=== PATIENT | female | born 1970 | race Caucasian/White ===

== ENCOUNTER → 2017-01-05 | Outpatient (CLI) | payer BC ==
--- NOTE | 2017-01-06 13:11 | MAMMOGRAPHY REPORT ---
BILATERAL DIGITAL SCREENING MAMMOGRAM TOMOSYNTHESIS WITH CAD: 01/05/2017 CLINICAL HISTORY: Routine screening. Patient has no complaints. TECHNIQUE: Breast tomosynthesis in addition to standard 2D mammography was performed. Current study was also evaluated with a Computer Aided Detection (CAD) system. COMPARISON: Comparison is made to exams dated: 12/31/2015 mammogram, 12/09/2014 mammogram, 10/16/2013 mammogram, 09/10/2012 mammogram, 09/08/2011 mammogram, and 11/17/2010 mammogram - [facility]. BREAST COMPOSITION: The tissue of both breasts is heterogeneously dense, which may obscure small ma sses. FINDINGS: No suspicious masses, calcifications, or areas of architectural distortion are noted in e ither breast. There has been no significant interval change compared to prior exams. Asymmetry in the left posterior breast on the MLO view is similar to some of the prior exams including the 2014 e xam, and has the appearance of overlapping fibroglandular tissue on the tomosynthesis images. Other bilateral asymmetries are also stable. IMPRESSION: ACR BI-RADS CATEGORY 2: BENIGN There is no mammographic evidence of malignancy. A 1 year screening mammogram is recommended. The p atient will receive written notification of the results. Approximately 10% of breast cancers are not detected with mammography. A negative mammographic repor t should not delay biopsy if a clinically suggestive mass is present. Naty Quintero M.D. /:01/05/2017 16:38:51 Drug Room Clerk: Domonique Laguerre, [facility] letter sent: Normal 1/2 BI-RADS Code: ACR BI-RADS Category 2: Benign
== END | disposition home or self-care (01) ==
LOC: C.MAMM 16:07
PROVIDERS: ATTEND Internal Medicine
DX: Z12.31 Encounter for screening mammogram for malignant neoplasm of breast (principal)

== ENCOUNTER 2024-09-29 02:28 | Inpatient (IN) ==
--- NOTE | 2024-09-29 02:51 | Emergency Department Note ---
Impression & Plan Acute pancreatitis ED Provider Note Name: SUMEET CHAHAL Age: 54 Sex: Female Arrives Via: Walk-In Informant: Patient, ED Provider: Ran Ritter MD Chief Complaint: Epigastric pain. Impression: As per impressions above Medical Decision Makin-year-old female arrives for evaluation of severe epigastric pain rating to her back. Associated with recurrent vomiting. Severe tenderness palpation over the upper abdomen. She had had illness about a week ago with some diarrhea and since then had not had a bowel movement either. IV pain medications given along with Zofran. This did seem to help significantly. CT of the abdomen pelvis was obtained. Evidence of pancreatitis on CT and lipase is elevated as well questionable biliary duct dilatation on CT however she has no elevation in her bilirubi nor her other LFTs. She does have a significantly elevated lipase consistent with pancreatitis. Patient is feeling significantly better though required another dose of IV pain medication. Patient does not have a history of diabetes she does not drink alcohol regularly and she does not use any drugs. Would suspect that this may be viral but there is a familial history of pancreatitis this may need further workup and evaluation. Triage/Nursing Notes reviewed by Me External Chart Review by me: PCP note from September 04, 2024 Differential:Pancreatitis, peptic ulcer disease, cholecystitis, biliary pathology, bowel obstruction, bowel ischemia, ACS, many other pathologies Vital Signs: reviewed and remarkable for no significant abnormalities Interventions: Dilaudid IV x 2, Zofran IV, normal saline bolus Labs:ED labs Reviewed by me and remarkable for no significant abnormalities Imaging:CT of the ab pelvis with IV contrast as per my informal interpretation. Pancreatic stranding with some mild biliary duct dilatation. This was confirmed by radiologist. Cardiac/Tele Monitoring: Cardiac Monitoring: An Order was placed for continuous cardiac monitoring. The monitor shows a rate of 70 with a normal sinus rhythm. Consults:[facility] and manage Plan: Disposition:Hospitalization. Condition: Good History of Present Illness: 54-year-old female arrives for evaluation of abdominal pain. Patient states that she had been sick about 7 or 8 days ago with some diarrhea and abdominal discomfort. Took some Imodium and symptoms resolved. Since then though had not had a bowel movement. Throughout the afternoon patient notes she has had rapid worsening of her abdominal pain. Now having dry heaves and recurrent vomiting. Pain is primarily in the epigastrium and right upper quadrant. Notes severe pain worse with any movement. Unknown goal to tolerate p.o. No fevers, chills, chest pain, back pain, urinary symptoms, leg swelling, other concerning signs or symptoms. Denies any falls, trauma, injuries. No medication prior to arrival. Patient notes she had been on a medication to help with hot flashes which was an antidepressant and recently has been coming off it and is concerned that maybe the symptoms are due to Past Medical History:See Below Home Medications:See Below Allergies:aluminum Vitals:Blood Pressure: 135/64, Pulse 71, RR 20, T 36.8C, O2 95% on RA Physical Exam: GENERAL: Patient is severely uncomfortable appearing and in moderate distress. Writhing on bed RESPIRATORY: No dyspnea. Clear to auscultation and equal bilaterally. CARDIOVASCULAR: Regular rate and rhythm.No murmur appreciated. GASTROINTESTINAL: Severe epigastric/right upper quadrant tenderness palpation no other tenderness palpation rest of abdomen. Normal active bowel sounds. EXTREMITIES: Normal motion all extremities, no cyanosis, no edema. NEUROLOGIC: Alert and oriented. No focal neurologic deficits appreciated SKIN: No rash, no jaundice, no diaphoresis. PSYCH: Appropriate GCS: 15 ED Course: Times/Reassessments: Patient feeling significantly better. Agreeable to hospitalization Ran Ritter MD Past Med/Surg History Problem List (Updated 09/29/24 @ 07:09 by Ran Ritter MD) Acute pancreatitis (Acute) Hypokalemia Pancreatitis Defecation symptom (Chronic) Incontinence (Chronic) Constipation Incomplete bladder emptying Primary stress urinary incontinence Encounter for cosmetic procedure Family history of colon cancer Encounter for pre-operative examination TMJ arthralgia Abdominal pain (Acute) Insomnia (Acute) Nausea (Acute) Rosacea (Acute) Stress incontinence in female (Acute) Urinary frequency (Acute) Medical History Hot flashes REASON FOR PAXIL RX Surgical History History of colonoscopy 2021, 5 yrs [place] teeth removed Family History Mother Cerebral arterial aneurysm, Onset Age: 29 Sister Colon cancer, Onset Age: 46 genetic testing was performed on the pt sister which showed no genetic predisposition to colon CA Father Coronary heart disease Unknown Coronary heart disease Grandmother (Maternal) Breast cancer Other No family history of adverse response to anesthesia Denies family history of Ovarian cancer Prostate cancer Social History Smoking Status: Never smoker Second Hand Exposure: No; Do You Dip or Chew Tobacco: No; Hx Alcohol Use: Yes Alcohol type: wine Alcohol Intake Frequency: 2-4 x/Month Hx Substance Use: No Preferred Language: Mauritanian Communication Ability: Effective Hearing Ability: Normal Thermal Cutter Hand Required: No Beliefs That Will Affect Care: None marital status: Current Living Situation: Family Current Living Situation Comment: /SON/DAUGHTER current occupational status: employed current occupation: [employer] Feels Safe at Home: Yes Childhood Exposure to Second-Hand Smoke: No Diet: regular caffeine: Yes Dental Care, Regularly: Yes Physical Activity Frequency: 1-2 Times per Week Seatbelt Use: always Sunscreen Use: Yes Assistive Devices: Glasses Allergies Allergies Allergy/AdvReac Type Severity Reaction Status Date / Time aluminum Allergy Mild Rash Verified 09/12/24 09:59 Home Meds Home Medications Medication Instructions Recorded Confirmed multivitamin with minerals 1 tab PO DAILY 02/03/22 09/12/24 (Hair,Skin and Nails tablet) Previous Rx's Medication Instructions Recorded ibuprofen 600 mg tablet 600 mg PO Q8H PRN pain #90 tabs 02/17/21 paroxetine HCl 30 mg tablet 30 mg PO DAILY #30 tabs 07/01/24 Results & Data (ED) Vital Signs Vital Signs - 24 hr 09/29/24 02:33 09/29/24 02:42 09/29/24 02:43 Temperature 36.8 C Temperature Source Temporal Artery Scan Pulse Rate 73 71 69 Pulse Rate [Apical] Pulse Rate from SpO2 Sensor Pulse Rhythm [Apical] Pulse Strength [Apical] Respiratory Rate 20 15 Respiratory Effort / Characteristics Non-Labored Spontaneous Accessory Muscle Use Respiratory Depth Normal Respiratory Pattern Regular Blood Pressure 135/64 135/64 Blood Pressure [Left Arm] Blood Pressure Mean 87 80 Blood Pressure Mean [Left Arm] Blood Pressure Position Sitting Blood Pressure Position [Left Arm] Pulse Oximetry 95 Oxygen Delivery Method Room Air Sepsis Recent Fever Within 48 Hours No Sepsis New/Unexplained Change in Mental Status N/A Sepsis Action Taken by Nursing No Action Required 09/29/24 03:30 09/29/24 03:31 09/29/24 05:21 Temperature Temperature Source Pulse Rate 72 67 Pulse Rate [Apical] 66 Pulse Rate from SpO2 Sensor 70 68 Pulse Rhythm [Apical] Regular Pulse Strength [Apical] Normal Respiratory Rate 24 25 H 16 Respiratory Effort / Characteristics Non-Labored Respiratory Depth Normal Respiratory Pattern Blood Pressure 173/86 H 120/72 Blood Pressure [Left Arm] 173/86 H Blood Pressure Mean 116 88 Blood Pressure Mean [Left Arm] 115 Blood Pressure Position Blood Pressure Position [Left Arm] Pulse Oximetry 96 99 96 Oxygen Delivery Method Room Air Room Air Room Air Sepsis Recent Fever Within 48 Hours Sepsis New/Unexplained Change in Mental Status Sepsis Action Taken by Nursing 09/29/24 05:24 09/29/24 06:00 09/29/24 06:29 Temperature Temperature Source Pulse Rate 67 72 71 Pulse Rate [Apical] Pulse Rate from SpO2 Sensor 68 72 Pulse Rhythm [Apical] Pulse Strength [Apical] Respiratory Rate 14 11 L Respiratory Effort / Characteristics Respiratory Depth Respiratory Pattern Blood Pressure 120/72 144/83 H Blood Pressure [Left Arm] Blood Pressure Mean 81 101 Blood Pressure Mean [Left Arm] Blood Pressure Position Blood Pressure Position [Left Arm] Pulse Oximetry 94 98 Oxygen Delivery Method Room Air Room Air Sepsis Recent Fever Within 48 Hours Sepsis New/Unexplained Change in Mental Status Sepsis Action Taken by Nursing 09/29/24 07:00 Temperature Temperature Source Pulse Rate Pulse Rate [Apical] 74 Pulse Rate from SpO2 Sensor Pulse Rhythm [Apical] Pulse Strength [Apical] Respiratory Rate 18 Respiratory Effort / Characteristics Respiratory Depth Respiratory Pattern Blood Pressure Blood Pressure [Left Arm] 127/81 Blood Pressure Mean Blood Pressure Mean [Left Arm] 96 Blood Pressure Position Blood Pressure Position [Left Arm] Lying Pulse Oximetry 99 Oxygen Delivery Method Room Air Sepsis Recent Fever Within 48 Hours Sepsis New/Unexplained Change in Mental Status Sepsis Action Taken by Nursing Laboratory Data 09/29/24 02:50 09/29/24 02:50 Lab Results 09/29/24 09/29/24 09/29/24 Range/Units 02:50 02:57 06:13 WBC 7.30 (4.8-10.8) K/ul RBC 4.42 (4.20-5.40) M/uL Hgb 13.7 (12.0-16.0) g/dl POC Hgb 13.3 (12.0-16.0) g/dl Hct 39.7 (37.0-47.0) % POC Hct 39 (37-47) % MCV 89.8 (80.0-100.0) fL MCH 31.0 (25.0-34.0) pg MCHC 34.5 (32.0-36.0) g/dL RDW Std Deviation 39.2 (36.4-46.3) fL RDW Coeff of Cipriano 11.9 (11.5-14.5) % Plt Count 254 (130-400) K/uL MPV 10.7 (9.4-12.4) fL Immature Gran % (Auto) 0.3 % Neut % (Auto) 41.1 % Lymph % (Auto) 43.2 % Cooper % (Auto) 11.5 % Eos % (Auto) 3.4 % Baso % (Auto) 0.5 % Neut # (Auto) 3.00 (1.40-6.50) K/uL Lymph # (Auto) 3.15 (1.20-3.40) K/uL Cooper # (Auto) 0.84 H (0.11-0.59) K/uL Eos # (Auto) 0.25 (0.00-0.50) K/uL Baso # (Auto) 0.04 (0.00-0.20) K/uL Immature Gran # (Auto) 0.02 (0.01-0.20) K/uL PT 10.3 (9.0-12.0) Seconds INR 0.9 (0.9-1.1) POC Sodium 141 (135-144) mmol/L Sodium 140 (136-145) mmol/L POC Potassium 2.9 L (3.3-5.0) mmol/L Potassium 3.0 L (3.5-5.1) mmol/L POC Chloride 104 (101-112) mmol/L Chloride 105 (98-107) mmol/L Carbon Dioxide 27 (21-32) mmol/L POC Total CO2 24 (24-31) mmol/L Anion Gap 8 (3-11) POC Anion Gap 17.0 (16-25) mmol/L POC BUN 13 (7-18) mg/dl BUN 13 (6-23) mg/dl Creatinine 0.86 (0.6-1.2) mg/dl POC Creatinine 0.9 (0.6-1.3) mg/dl Est Cr Clr Drug Dosing 72.7 ml/min eGFR 80.23 BUN/Creatinine Ratio 15.1 (10-20) Glucose 133 H (70-99(Fasting)) mg/dl POC Glucose (other) 133 H (70-99) mg/dl Calcium 9.5 (8.6-10.3) mg/dl POC Ioniz Calcium Jocelyn 1.18 (1.12-1.32) mmol/l Total Bilirubin 0.4 (0.2-1.0) mg/dl Direct Bilirubin 0.1 (0-0.2) mg/dl AST 41 H (13-39) U/L ALT 45 (7-52) U/L Alkaline Phosphatase 48 (34-104) U/L Troponin I High Sens 3.2 (0-14) pg/ml Total Protein 6.7 (6.0-8.3) gm/dl Albumin 4.1 (3.4-5.0) gm/dl Lipase 4548 H (11-82) U/L Urine Color Yellow Urine Appearance Clear (Clear) Urine pH 5.5 (4.5-7.5) Ur Specific [place] 1.015 (1.000-1.030) Urine Protein Negative (Negative) Urine Glucose (UA) Negative (Negative) Urine Ketones Negative (Negative) Urine Blood Trace H (Negative) Urine Nitrite Negative (Negative) Urine Bilirubin Negative (Negative) Urine Urobilinogen Negative (Negative) Ur Leukocyte Esterase Negative (Negative) Urine WBC (Auto) 0-5 (0-5) /hpf Urine RBC (Auto) 0-2 (0-2) /hpf U Hyaline Cast (Auto) 0-2 (0-2) /lpf U Epithel Cells (Auto) 0-2 (0-2) /hpf Urine Bacteria (Auto) None Seen (None Seen) Administered Medications Potassium Chloride 40 meq/ (Sodium Chloride) 1,020 mls @ 100 mls/hr IV .[id number] STA Stop: 09/29/24 16:32 Last Admin: 09/29/24 07:00 Dose: 100 mls/hr Documented By: MHN Discontinued Medications Hydromorphone HCl (Hydromorphone Inj 1 Mg/Ml Syringe) 1 mg IV NOW STA Stop: 09/29/24 02:48 Last Admin: 09/29/24 02:52 Dose: 1 mg Documented By: CRISTÓBAL Hydromorphone HCl (Hydromorphone Inj 0.5 Mg/0.5 Ml Syr) 0.5 mg IV NOW STA Stop: 09/29/24 04:30 Last Admin: 09/29/24 04:33 Dose: 0.5 mg Documented By: CRISTÓBAL Sodium Chloride (Nss) 1,000 mls @ 999 mls/hr IV .Q1H1M ONE Stop: 09/29/24 03:47 Last Infusion: 09/29/24 03:54 Dose: Infused Documented By: Admin: 09/29/24 02:53 Dose: 999 mls/hr Documented By: CRISTÓBAL Sodium Chloride (Nss) 1,000 mls @ 999 mls/hr IV .Q1H1M ONE Stop: 09/29/24 05:06 Last Infusion: 09/29/24 05:21 Dose: Infused Documented By: Admin: 09/29/24 04:20 Dose: 999 mls/hr Documented By: CRISTÓBAL Lactated Ringer's (Lr) 1,000 mls @ 100 mls/hr IV .Q10H RAYMOND Stop: 09/30/24 16:14 Last Admin: 09/29/24 07:00 Dose: Not Given Documented By: ENA Ioversol (Optiray 320 100ml) 94 ml IV ONCE ONE Stop: 09/29/24 03:23 Last Admin: 09/29/24 03:28 Dose: 94 ml Documented By: AGUSTO Ondansetron HCl (Ondansetron Inj 2 Mg/Ml 2 Ml Vial) 4 mg IV NOW STA Stop: 09/29/24 02:48 Last Admin: 09/29/24 02:52 Dose: 4 mg Documented By: CRISTÓBAL Imaging Data Radiologist's Impression: Abdomen/Pelvis CT 09/29/24 02:47 EXAM: CT abd pelvis IV con only CLINICAL HISTORY: RUQ/epi pain, vomiting, no BM 6 days TECHNIQUE: Multiple contiguous axial images were obtained from the level of diaphragm to the pubis symphysis. This study was acquired after the IV administration of iodinated contrast material, given the patients indications for the examination. If IV contrast material had not been administered, the likelihood of detecting abnormalities relevant to the patients condition would have been substantially decreased. Coronal and sagittal reformatted images were generated and reviewed to improve anatomic localization and optimize lesion detection. CT scan was performed according to ALARA (as low as reasonable achievable). COMPARISON: No FINDINGS: The visualized lung bases are clear. ABDOMEN/PELVIS: The liver is normal in size and attenuation. No focal liver lesions are seen. There is mild intra and extrahepatic biliary ductal dilatation with common bile duct measuring 7.9mm. No intraluminal obstructive hyperdense calculus noted. Hepatic vasculature is patent. The gallbladder is unremarkable. Heterogeneity is noted in the pancreatic head and proximal body with bulky pancreas and mild peripancreatic fat stranding. The spleen, and adrenal glands are unremarkable. The kidneys are normal in size and attenuation. There is no hydronephrosis or perinephric fat stranding. No renal masses are identified. Few tiny renal concretions in bilateral kidneys. Cortical cyst of size 19 x 12mm in left renal lower pole. The ureters are normal in caliber and no ureteral calculi are seen. The bladder is normal in contour. No evidence of focal or diffuse bowel wall thickening or evidence of bowel obstruction is seen. No evidence of inflammed appendix. No adenopathy or fluid collections are seen. The aorta is normal in caliber. No aggressive appearing osseous lesions are identified. IMPRESSION: 1. Dilated common bile duct with minimal intrahepatic biliary ductal dilatation, likely secondary to obstructive distal CBD calculus. Suggest- MRCP correlation. [id number]. Bulky and heterogenous pancreatic head /OBX.5.1.1OBX.5.1.2 body with mild peripancreatic fat stranding, likely suggestive of acute pancreatitis. Suggested serum amylase and lipase correlation. /OBX.5.1.2/OBX.5.1 3. Simple left renal cortical cyst. Electronically signed by Vito Gongora 09-29-2024 04:57 AM Discharge Plan Visit Data Chief Complaint: Abdominal Pain Stated Complaint: burning abd pain, ED Provider: Ran Ritter Discharge Problem: Acute pancreatitis Forms Stand Alone Forms: My [facility] [employer] Prescriptions Prescriptions: No Action ibuprofen 600 mg tablet 600 mg PO Q8H PRN (Reason: pain) Qty: 90 0RF paroxetine HCl 30 mg tablet 30 mg PO DAILY Qty: 30 2RF Hair,Skin and Nails Tablet 1 tab PO DAILY Referrals Referrals: Solomon Villalta MD [Primary Care Provider] - Discharge Problem: Acute pancreatitis Qualifiers: Pancreatitis type: other Acute pancreatitis complication: no infection or necrosis Qualified Code(s): K85.80 - Other acute pancreatitis without necrosis or infection
[2024-09-29] MEDS: HYDROmorphone INJ 1 MG/ML SYRINGE IV STA (02:52)
[2024-09-29] MEDS: ONDANSETRON INJ 2 MG/ML 2 ML VIAL IV STA (02:52)
[2024-09-29] MEDS: SODIUM CHLORIDE 0.9% 1,000 ML IV ONE ×2 (02:53→04:20)
[2024-09-29 03:09] LABS: iSTAT Creatinine 0.9 mg/dl (0.6-1.3); iSTAT Hemoglobin 13.3 g/dl (12.0-16.0); iSTAT Ionized Calcium 1.18 mmol/l (1.12-1.32); iSTAT Potassium 2.9 mmol/L (3.3-5.0)
[2024-09-29 03:18] LABS: Basophils # (auto) 0.04 K/uL (0.00-0.20); Basophils % (auto) 0.5 %; Eosinophils # (auto) 0.25 K/uL (0.00-0.50); Eosinophils % (auto) 3.4 %; Hematocrit (blood only) 39.7 % (37.0-47.0); Hemoglobin 13.7 g/dl (12.0-16.0); Immature Granulocytes # (auto) 0.02 K/uL (0.01-0.20); Immature Granulocytes % (auto) 0.3 %; Lymphocytes # (auto) 3.15 K/uL (1.20-3.40); Lymphocytes % (auto) 43.2 %; Mean Corpuscular Hgb Conc 34.5 g/dL (32.0-36.0); Mean Corpuscular Volume 89.8 fL (80.0-100.0); Mean Platelet Volume 10.7 fL (9.4-12.4); Monocytes # (auto) 0.84 K/uL (0.11-0.59); Monocytes % (auto) 11.5 %; Neutrophils % (auto) 41.1 %; Platelet Count 254 K/uL (130-400); RDW Coefficient of Variation 11.9 % (11.5-14.5); RDW Standard Deviation 39.2 fL (36.4-46.3); Red Blood Count 4.42 M/uL (4.20-5.40)
[2024-09-29 03:27] LABS: BUN Creatinine Ratio 15.1 (10-20); Calcium 9.5 mg/dl (8.6-10.3); Creatinine Clr Calc Pharmacy 72.7 ml/min
[2024-09-29] MEDS: OPTIRAY 320 100ml IV ONE (03:28)
[2024-09-29 03:32] LABS: Troponin I High Sensitivity 3.2 pg/ml (0-14)
[2024-09-29 03:53] LABS: Albumin Level 4.1 gm/dl (3.4-5.0); Bilirubin Direct 0.1 mg/dl (0-0.2); Bilirubin,Total 0.4 mg/dl (0.2-1.0); Total Protein 6.7 gm/dl (6.0-8.3)
[2024-09-29] MEDS: HYDROmorphone INJ 0.5 MG/0.5 ML SYR IV STA (04:33)
--- NOTE | 2024-09-29 04:58 | CT Scan Report ---
EXAM: CT abd pelvis IV con only CLINICAL HISTORY: RUQ/epi pain, vomiting, no BM 6 days TECHNIQUE: Multiple contiguous axial images were obtained from the level of diaphragm to the pubis symphysis. This study was acquired after the IV administration of iodinated contrast material, given the patients indications for the examination. If IV contrast material had not been administered, the likelihood of detecting abnormalities relevant to the patients condition would have been substantially decreased. Coronal and sagittal reformatted images were generated and reviewed to improve anatomic localization and optimize lesion detection. CT scan was performed according to ALARA (as low as reasonable achievable). COMPARISON: No FINDINGS: The visualized lung bases are clear. ABDOMEN/PELVIS: The liver is normal in size and attenuation. No focal liver lesions are seen. There is mild intra and extrahepatic biliary ductal dilatation with common bile duct measuring 7.9mm. No intraluminal obstructive hyperdense calculus noted. Hepatic vasculature is patent. The gallbladder is unremarkable. Heterogeneity is noted in the pancreatic head and proximal body with bulky pancreas and mild peripancreatic fat stranding. The spleen, and adrenal glands are unremarkable. The kidneys are normal in size and attenuation. There is no hydronephrosis or perinephric fat stranding. No renal masses are identified. Few tiny renal concretions in bilateral kidneys. Cortical cyst of size 19 x 12mm in left renal lower pole. The ureters are normal in caliber and no ureteral calculi are seen. The bladder is normal in contour. No evidence of focal or diffuse bowel wall thickening or evidence of bowel obstruction is seen. No evidence of inflammed appendix. No adenopathy or fluid collections are seen. The aorta is normal in caliber. No aggressive appearing osseous lesions are identified. IMPRESSION: 1. Dilated common bile duct with minimal intrahepatic biliary ductal dilatation, likely secondary to obstructive distal CBD calculus. Suggest- MRCP correlation. OBX.5.1OBX.5.1.12. Bulky and heterogenous pancreatic head /OBX.5.1.1OBX.5.1.2 body with mild peripancreatic fat stranding, likely suggestive of acute pancreatitis. Suggested serum amylase and lipase correlation. /OBX.5.1.2/OBX.5.1 3. Simple left renal cortical cyst. Electronically signed by Vito Gongora 09-29-2024 04:57 AM
--- NOTE | 2024-09-29 05:40 | History & Physical Report ---
Date of Service September 29, 2024 Assessment & Plan (1) Pancreatitis: (2) Hypokalemia: Plan 54-year-old female PMHx incomplete bladder emptying, stress urinary incontinence, and rosacea presenting for N/V/D x 1 week with sudden onset of new, severe abdominal pain starting day of arrival. ED evaluation reveals no leukocytosis, potassium 3, AST 41, lipase 4548. TG pending, alcohol level pending. CTAP dilated CBD minimal intrahepatic biliary ductal station, likely secondary to obstructive distal CBD calculus, suggest MRCP, simple L renal cortical cyst. Provided with 2L NSS, Zofran 4 mg, Dilaudid 1.5 mg total in ED. #Pancreatitis, acute Symptoms of severe abdominal pain started []; with associated N/V/D for the past week DROP FORGE HAND, ? viral prodrome. No prior history of pancreatitis. Denies alcohol use. - CBC without leukocytosis; lipase 4548; calcium 9.5; pending TG, pending coags - CTAP dilated CBD, likely secondary to obstructive distal CBD, suggest MRCP- Pending MRCP - NPO until MRCP - Received 2 L NSS in ED; continue IVF 100 mL/h x 1L - Ketorolac 15 mg q6hr prn pain; Dilaudid 0.5 mg q6hr prn severe pain; Zofran 4 q8hr prn N/V; Protonix IV- switch to po once no longer NPO - GI consulted- appreciate input + recs #Hypokalemia Asymptomatic currently - K 3.0; Mg pending - repeat am - NSS w/ KCl 40 mEq; stop fluids at 1L total #Hot flashes- Paroxetine Dispo: Admit, med/sx VTE Prophylaxis: SCDs, encourage ambulation This document was dictated utilizing IActive. Please excuse any grammatical errors that may be secondary to use of this software. Admission and Anticipated Discharge Date Admission Date: 09/29/2024 History of Present Illness Chief Complaint: Abdominal pain Primary Care Provider: Solomon Villalta MD 54-year-old female PMHx incomplete bladder emptying, stress urinary incontinence, and rosacea presenting for N/V/D x 1 week with sudden onset of new, severe abdominal pain starting day of arrival. States that approximately 5 days ago after she was eating she felt sick approximate 2 hours following this. Did take Imodium in order to feel better because she was having loose stool, this resolved the symptoms. Similar episodes occurred on August 09, 2024, Imodium resolving the symptoms again. Today she had sudden onset of severe epigastric abdominal pain, no radiation. Exacerbated by leaning forward causing her to feel nauseous. Patient denies alcohol use. Denying chest pain, shortness of breath, palpitations, numbness/tingling, LUTS,/chills, or URI symptoms. ED evaluation reveals no leukocytosis, potassium 3, AST 41, lipase 4548. TG pending, alcohol level pending. CTAP dilated CBD minimal intrahepatic biliary ductal station, likely secondary to obstructive distal CBD calculus, suggest MRCP, simple L renal cortical cyst. Provided with 2L NSS, Zofran 4 mg, Dilaudid 1.5 mg total in ED. Please see Dr. Boucher's attestation for adjustments/additions to treatment plan. Allergies Allergy/AdvReac Type Severity Reaction Status Date / Time aluminum Allergy Mild Rash Verified 09/12/24 09:59 Home Medications Medication Instructions Recorded Confirmed Type ibuprofen 600 mg tablet 600 mg PO Q8H PRN pain #90 tabs 02/17/21 09/12/24 Rx multivitamin with minerals 1 tab PO DAILY 02/03/22 09/12/24 History (Hair,Skin and Nails tablet) paroxetine HCl 30 mg tablet 30 mg PO DAILY #30 tabs 07/01/24 09/12/24 Rx Past Med/Surg History Problem List (Updated 09/29/24 @ 12:25 by Wilfredo Guerra, DO) Common bile duct dilation Acute pancreatitis (Acute) Hypokalemia Defecation symptom (Chronic) Incontinence (Chronic) Constipation Incomplete bladder emptying Primary stress urinary incontinence Encounter for cosmetic procedure Family history of colon cancer Encounter for pre-operative examination TMJ arthralgia Abdominal pain (Acute) Insomnia (Acute) Nausea (Acute) Rosacea (Acute) Stress incontinence in female (Acute) Urinary frequency (Acute) Medical History Hot flashes REASON FOR PAXIL RX Surgical History History of colonoscopy 2021, 5 yrs [place] teeth removed Family History Mother Cerebral arterial aneurysm, Onset Age: 29 Sister Colon cancer, Onset Age: 46 genetic testing was performed on the pt sister which showed no genetic predisposition to colon CA Father Coronary heart disease Unknown Coronary heart disease Grandmother (Maternal) Breast cancer Other No family history of adverse response to anesthesia Denies family history of Ovarian cancer Prostate cancer Social History Smoking Status: Never smoker Second Hand Exposure: No; Do You Dip or Chew Tobacco: No; Hx Alcohol Use: Yes Alcohol type: wine Alcohol Intake Frequency: 2-4 x/Month Hx Substance Use: No Preferred Language: Honduran Communication Ability: Effective Hearing Ability: Normal 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 Beliefs That Will Affect Care: None marital status: Current Living Situation: Spouse and Other Current Living Situation Comment: and children current occupational status: employed current occupation: [employer] Feels Safe at Home: Yes Childhood Exposure to Second-Hand Smoke: No Diet: regular caffeine: Yes Dental Care, Regularly: Yes Physical Activity Frequency: 1-2 Times per Week Seatbelt Use: always Sunscreen Use: Yes Assistive Devices: None Review of Systems Review of Systems: All systems reviewed & are unremarkable except as noted in Subjective Physical Exam Physical Exam: General: No acute distress Skin: Warm and dry, without rashes or lesions Head: Normocephalic, atraumatic Eyes: PERRL, conjunctivae clear, sclera non-icteric ENT: External ear and ear canal without swelling; nose atraumatic; good dentition, tongue normal appearance, pharynx normal Neck: Supple, no LAD; no JVD Cardio: RRR, no M/G/R, S1 and S2 normal Resp: No respiratory distress, Lungs CTA in all lobes bilaterally, no wheezes, rales, or rhonchi Abdomen: Soft, symmetric, nontender; No visible lesions or scars; no distention; No masses or hepatosplenomegaly; Bowel sounds normoactive; no ecchymosis to flank/umbilicus MSK: No deformities; pulses palpable and equal; no edema. Neuro: Awake, alert; CN grossly intact Psych: Appropriate mood and affect; good judgement and insight. Results & Data Results & Data Vital Signs (Past 12 Hours) Vital Signs Temp Pulse Pulse Resp BP BP Pulse Ox 09/29/24 05:21 67 16 120/72 96 09/29/24 03:31 66 25 H 173/86 H 99 09/29/24 03:30 72 24 173/86 H 96 09/29/24 02:43 69 15 135/64 09/29/24 02:42 71 09/29/24 02:33 36.8 C 73 20 135/64 95 O2 Del Method 09/29/24 05:21 Room Air 09/29/24 03:31 Room Air 09/29/24 03:30 Room Air 09/29/24 02:43 09/29/24 02:42 09/29/24 02:33 Room Air Laboratory Results 09/29/24 09/29/24 02:57 02:50 WBC 7.30 RBC 4.42 Hgb 13.7 POC Hgb 13.3 Hct 39.7 POC Hct 39 MCV 89.8 MCH 31.0 MCHC 34.5 RDW Std Deviation 39.2 RDW Coeff of Cipriano 11.9 Plt Count 254 MPV 10.7 Immature Gran % (Auto) 0.3 Neut % (Auto) 41.1 Lymph % (Auto) 43.2 [place] % (Auto) 11.5 Eos % (Auto) 3.4 Baso % (Auto) 0.5 Neut # (Auto) 3.00 Lymph # (Auto) 3.15 [place] # (Auto) 0.84 H Eos # (Auto) 0.25 Baso # (Auto) 0.04 Immature Gran # (Auto) 0.02 POC Sodium 141 Sodium 140 POC Potassium 2.9 L Potassium 3.0 L POC Chloride 104 Chloride 105 Carbon Dioxide 27 POC Total CO2 24 Anion Gap 8 POC Anion Gap 17.0 POC BUN 13 BUN 13 Creatinine 0.86 POC Creatinine 0.9 Est Cr Clr Drug Dosing 72.7 eGFR 80.23 BUN/Creatinine Ratio 15.1 Glucose 133 H POC Glucose (other) 133 H Calcium 9.5 POC Ioniz Calcium Jocelyn 1.18 Total Bilirubin 0.4 Direct Bilirubin 0.1 AST 41 H ALT 45 Alkaline Phosphatase 48 Troponin I High Sens 3.2 Total Protein 6.7 Albumin 4.1 Lipase 4548 H Diagnostic Findings Abdomen/Pelvis CT 09/29/24 02:47 EXAM: CT abd pelvis IV con only CLINICAL HISTORY: RUQ/epi pain, vomiting, no BM 6 days TECHNIQUE: Multiple contiguous axial images were obtained from the level of diaphragm to the pubis symphysis. This study was acquired after the IV administration of iodinated contrast material, given the patients indications for the examination. If IV contrast material had not been administered, the likelihood of detecting abnormalities relevant to the patients condition would have been substantially decreased. Coronal and sagittal reformatted images were generated and reviewed to improve anatomic localization and optimize lesion detection. CT scan was performed according to ALARA (as low as reasonable achievable). COMPARISON: No FINDINGS: The visualized lung bases are clear. ABDOMEN/PELVIS: The liver is normal in size and attenuation. No focal liver lesions are seen. There is mild intra and extrahepatic biliary ductal dilatation with common bile duct measuring 7.9mm. No intraluminal obstructive hyperdense calculus noted. Hepatic vasculature is patent. The gallbladder is unremarkable. Heterogeneity is noted in the pancreatic head and proximal body with bulky pancreas and mild peripancreatic fat stranding. The spleen, and adrenal glands are unremarkable. The kidneys are normal in size and attenuation. There is no hydronephrosis or perinephric fat stranding. No renal masses are identified. Few tiny renal concretions in bilateral kidneys. Cortical cyst of size 19 x 12mm in left renal lower pole. The ureters are normal in caliber and no ureteral calculi are seen. The bladder is normal in contour. No evidence of focal or diffuse bowel wall thickening or evidence of bowel obstruction is seen. No evidence of inflammed appendix. No adenopathy or fluid collections are seen. The aorta is normal in caliber. No aggressive appearing osseous lesions are identified. IMPRESSION: 1. Dilated common bile duct with minimal intrahepatic biliary ductal dilatation, likely secondary to obstructive distal CBD calculus. Suggest- MRCP correlation. [id number].[id number]. Bulky and heterogenous pancreatic head /OBX.5.1.1OBX.5.1.2 body with mild peripancreatic fat stranding, likely suggestive of acute pancreatitis. Suggested serum amylase and lipase correlation. /OBX.5.1.2/OBX.5.1 3. Simple left renal cortical cyst. Electronically signed by Vito Gongora 09-29-2024 04:57 AM Medications Administered NSS 2L Zofran 4 mg IV Dilaudid 1.5 mg IV total Code Status & VTE Plan Code Status Full Supervising Physician Co-Signing Physician Notes Attending addendum: I have physically seen this patient, have supervised the RHONDA's activities, and agree with the H&P unless as otherwise noted. Assessment and Plan: The patient is a 54-year-old female with past medical history including incomplete bladder emptying, stress urinary incontinence, rosacea, TMJ arthralgia, insomnia and chronic urinary frequency. She presents to the emerge ncy department with complaint of sudden onset of new severe abdominal pain that began earlier in the day of arrival. The patient however had had symptoms for 5 days previously, that began with nausea and vomiting, has gotten somewhat better, but on the day of admission had worsening considerably. She describes symptoms of early satiety, and reports that when she would lean forward, she felt like she needed to throw up. Acute pancreatitis- Lipase 4548, AST 41 CT scan abdomen pelvis showed dilated common bile duct with minimal intrahepatic biliary ductal dilatation, likely secondary to obstructive distal CBD calculus, with suggestion for MRCP for correlation. Bulky and heterogeneous pancreatic head/body with mild peripancreatic fat stranding likely suggestive of acute pancreatitis. Suggested serum amylase and lipase for correlation Emergency department assessment, without seeing a stone. Request the patient be admitted to and the hospitalist service, for further workup. NPO Pantoprazole 40 mg IV daily Zofran 4 mg IV every 6 hours as needed Order MRCP Of note, due to severe winter weather, patient would be unable to be transported to a tertiary care facility, and would need to be admitted to [facility] in either case. Consult gastroenterology Hypokalemia- Potassium 3.0 on admission NSS + KCl 40 mEq at 100 mL/h x 1 L Repeating laboratories in the a.m. Chronic medical conditions: Postmenopausal/perimenopausal hot flashes-temporarily hold paroxetine PG Care Time/CCT Total # of Minutes Spent Total Time Spent with Patient: Total time spent is greater than 50% in coordination of care (as documented) at patient's floor/unit and/or counseling patient: Coding Level of Care Code 02899 INT INP/OBS CARE 3/75MIN Diagnoses Pancreatitis K85.90 Hypokalemia E87.6
[2024-09-29 06:34] LABS: Appearance Urine Clear (Clear); Bacteria Urine Automated None Seen (None Seen); Bilirubin Urine Negative (Negative); Blood Urine Trace (Negative); Cast Urine Automated 0-2 /lpf (0-2); Color Urine Yellow; Epithelial Cell Urine Auto 0-2 /hpf (0-2); Glucose Urine UA Negative (Negative); Ketones Urine Negative (Negative); Leukocyte Esterase Urine Negative (Negative); Nitrite Urine Negative (Negative); Protein Urine Negative (Negative); RBC Urine Automated 0-2 /hpf (0-2); Specific Gravity Urine 1.015 (1.000-1.030); Urobilinogen Urine Negative (Negative); WBC Urine Automated 0-5 /hpf (0-5); pH Urine 5.5 (4.5-7.5)
[2024-09-29 06:42] LABS: INR 0.9 (0.9-1.1); Prothrombin Time 10.3 Seconds (9.0-12.0)
[2024-09-29] MEDS: POTASSIUM CHLORIDE 40 MEQ in SODIUM CHLORIDE 0.9% 1,000 ML IV STA (07:00)
[2024-09-29] MEDS: LACTATED RINGER'S 1,000 ML IV SCH (07:00)
[2024-09-29] MEDS ORDERED: ONDANSETRON INJ 2 MG/ML 2 ML VIAL IV PRN (07:58)
[2024-09-29] MEDS ORDERED: HYDROmorphone INJ 0.5 MG/0.5 ML SYR IV PRN (07:58)
[2024-09-29] MEDS ORDERED: MELATONIN 3 MG TAB PO PRN (07:58)
[2024-09-29] MEDS ORDERED: POLYETHYLENE (MIRALAX) 17 GM PACK PO PRN (07:58)
--- NOTE | 2024-09-29 08:11 | Hospitalist Progress Note ---
Date of Service September 29, 2024 Assessment & Plan (1) Acute pancreatitis: (2) Hypokalemia: Plan #Pancreatitis, acute Symptoms of severe abdominal pain started 09/28/24; with associated N/V/D for the past week, possible viral prodrome. No prior history of pancreatitis. Only 1 d rink of alcohol (hard cider) 09/24/24 evening. - CTAP dilated CBD, likely secondary to obstructive distal CBD, awaiting MRCP, NPO until then - CBC without leukocytosis; lipase downtrending 4548 -> 1892; calcium 9.5 - Triglycerides and cholesterol within normal limits - Received 2 L NSS in ED; continue IVF with K+ repletion - Ketorolac 15 mg q6hr prn pain; Dilaudid 0.5 mg q6hr prn severe pain; Zofran 4 q8hr prn N/V; Protonix IV- switch to po once no longer NPO - GI consulted, awaiting MRCP. If obstructing stone, then ERCP, but as labs are downtrending and clinically improving, any obstructing stone as likely passed #Common Bile Duct dilation as observed on CT abd/pelvis 09/28/24, likely obstructing gallstone but as lipase and LFTs downtrending may have passed - awaiting MRCP #Hypokalemia - asymptomatic, K+ 3.0, mag 2.0 - NSS w/ KCl 40 mEq; stop fluids at 1L total #Urinary retention w/ stress incontinence - chronic, no major concerns at this time, has tried pelvic floor exercises with some efficacy - established with urology, will follow up as needed #Hot flashes- Paroxetine __ Dispo: Admit, med/sx Diet: NPO until MRCP VTE Prophylaxis: SCDs, encourage ambulation Admission and Anticipated Discharge Date Admission Date: September 29, 2024 Supervising Physician Co-Signing Physician Notes I personally examined the patient and verified rock points of history and exam, discussed case, and agree with decision making and plan documented by Dr. Elkins. Acute pancreatitis. Patient with improvement of pain with hydromorphone, patient remains on IVF, awaiting MRCP results for next steps. Loki Pepper was seen and evaluated at bedside this AM, appearing in mild distress. Confirms history of urinary retention / stress incontinence and rosacea, denies other significant medical history. Endorses she started having nausea/vomiting/diarrhea on Monday09/23/24 after dining out, denies anything abnormal about what she ate. Also had a glass of hard cider. She had the above symptoms for a few days, then yesterday 09/28/24 started having sudden onset of severe mid-upper abdominal pain with radiation through to back at times, worse when moving abdomen. Denies prior acute pancreatitis, significant alcohol use, history of gallstones, denies recent significant alcohol use, denies scorpion sting. Notes she is feeling a bit better this morning compared to night prior, with about 2-3/10 abdominal pain which has been under control with 0.5mg Dilaudid IV q3 as needed, toradol 15mg q6 as needed Denies recent fever, body aches, chills, sweats, headache, dizziness, lightheadedness, SOB, numbness/tingling in extremities. Review of Systems Review of Systems: per HPI Physical Exam Physical Exam: General: A&Ox3, appearing in mild distress Head: NC/AT Eyes: EOM intact, PERRL b/l, anicteric sclerae CV: RRR, +s1/s2, no m/r/g Resp: No respiratory distress, clear to auscultation b/l; no wheezes, rales, or rhonchi GI/Abdomen: +BS, abdomen soft, nontender; No masses or hepatosplenomegaly MSK: No deformities, 5/5 strength in all extremities, no edema Skin: Warm and dry, without rashes or lesions Neuro: no facial droop, speech intact, sensation grossly intact Psych: Appropriate mood and affect Results & Data Results & Data Vital Signs (Past 12 Hours) Vital Signs Temp Pulse Pulse Resp BP BP Pulse Ox 09/29/24 07:00 74 18 127/81 99 09/29/24 06:29 71 09/29/24 06:00 72 11 L 144/83 H 98 09/29/24 05:24 67 14 120/72 94 09/29/24 05:21 67 16 120/72 96 09/29/24 03:31 66 25 H 173/86 H 99 09/29/24 03:30 72 24 173/86 H 96 09/29/24 02:43 69 15 135/64 09/29/24 02:42 71 09/29/24 02:33 36.8 C 73 20 135/64 95 O2 Del Method 09/29/24 07:00 Room Air 09/29/24 06:29 09/29/24 06:00 Room Air 09/29/24 05:24 Room Air 09/29/24 05:21 Room Air 09/29/24 03:31 Room Air 09/29/24 03:30 Room Air 09/29/24 02:43 09/29/24 02:42 09/29/24 02:33 Room Air Resident Activity Tracking Resident Involvement: Resident Care Provided Care Provided: Adult Hospital Medicine (1) Acute pancreatitis Acute pancreatitis complication: no infection or necrosis Pancreatitis type: other Qualified Code(s): K85.80 - Other acute pancreatitis without necrosis or infection
[2024-09-29] MEDS: HYDROmorphone INJ 0.5 MG/0.5 ML SYR IV PRN (08:17)
[2024-09-29 10:38] LABS: Chol HDL Ratio 2.9 (0-5)
[2024-09-29] MEDS: PANTOprazole 40 MG/10 ML SYR IV SCH (11:25)
--- NOTE | 2024-09-29 12:17 | Gastrointestinal Consultation ---
Date of Consultation September 29, 2024 Assessment & Plan (1) Acute pancreatitis: (2) Common bile duct dilation: MRCP pending, though lipase improved and no elevation of LFT's could be consistent with patient passing a gall stone. Continue current therapy and supportive care with narcotic analgesics and a ntiemetics Consider Abx if evidence of bile duct obstruction Consider ERCP/Leila based on above noted testing. History of Present Illness Reason for Consultation: Acute Pancreatitis Attending Physician: Nini Garay DO History of Present Illness 54 yo CF who presented to the ER early this AM with complaints of severe epigastric abdominal pain radiating into her back. She states a 1 week history of Nausea, vomiting and diarrhea, followed by the development of the pain which resulted in her ER evaluation. Upon arrival to the ER, she did have lab studies which showed an unremarkable liver panel, however, her Lipase was >4000. Her CT abd/pelvis showed, "Dilated common bile duct with minimal intrahepatic biliary ductal dilatation, likely secondary to obstructive distal CBD calculus." An MRCP was ordered, but has not been completed as of this time. She was kept NPO and given narcotic analgesics and antiemetics for symptomatic control. At the time I saw her, her epigastric pain was not improved, described as 8/10 in intensity, radiating to her back. She does not alleviation of her symptoms with narcotic analgesia. She denies any fevers, chills, current n/v/d, hematemesis, melena, or hematochezia. She denies any prior symptoms like this, and states she has never been diagnosed with pancreatitis previously. She does still have her Gall Bladder intact, and denies any excessive alcohol use. She has no further complaints. Allergies Allergy/AdvReac Type Severity Reaction Status Date / Time aluminum Allergy Mild Rash Verified 09/12/24 09:59 Home Medications Medication Instructions Recorded Confirmed Type ibuprofen 600 mg tablet 600 mg PO Q8H PRN pain #90 tabs 02/17/21 09/12/24 Rx multivitamin with minerals 1 tab PO DAILY 02/03/22 09/12/24 History (Hair,Skin and Nails tablet) paroxetine HCl 30 mg tablet 30 mg PO DAILY #30 tabs 07/01/24 09/12/24 Rx Patient History Medical History Hot flashes REASON FOR PAXIL RX Surgical History History of colonoscopy 2021, 5 yrs [place] teeth removed Family History Mother Cerebral arterial aneurysm, Onset Age: 29 Sister Colon cancer, Onset Age: 46 genetic testing was performed on the pt sister which showed no genetic predisposition to colon CA Father Coronary heart disease Unknown Coronary heart disease Grandmother (Maternal) Breast cancer Other No family history of adverse response to anesthesia Denies family history of Ovarian cancer Prostate cancer Social History Smoking Status: Never smoker Second Hand Exposure: No; Do You Dip or Chew Tobacco: No; Hx Alcohol Use: Yes Alcohol type: wine Alcohol Intake Frequency: 2-4 x/Month Hx Substance Use: No Preferred Language: Greek Communication Ability: Effective Hearing Ability: Normal Line Service Attendant Required: No Beliefs That Will Affect Care: None marital status: Current Living Situation: Spouse and Other Current Living Situation Comment: and children current occupational status: employed current occupation: [employer] Other Information That Helps Us Care for You: No Feels Safe at Home: Yes Safety Concerns: Feels Safe At This Time Childhood Exposure to Second-Hand Smoke: No Diet: regular caffeine: Yes Dental Care, Regularly: Yes Physical Activity Frequency: 1-2 Times per Week Seatbelt Use: always Sunscreen Use: Yes Assistive Devices: None Review of Systems Review of Systems: All systems reviewed & are unremarkable except as noted in HPI & below Physical Exam Constitutional: WD/WN, vitals as above Eyes: + anicteric sclerae Neck: normal visual inspection Respiratory: normal respiratory effort, lungs clear to auscultation Cardiovascular: RRR, no murmur, no edema Gastrointestinal (Abdomen): Inspection/Auscultation: normal bowel sounds; abdomen not distended Percussion/Palpation: + abdomen tender (Epigastric) and abdomen soft; no guarding and abdomen not rigid Skin: no rashes, warm and dry Psychiatric: A+Ox3, euthymic affect Results & Data Vital Signs (Past 12 Hours) Vital Signs Temp Pulse Pulse Pulse Resp BP BP 09/29/24 07:55 36.8 C 72 18 144/78 H 09/29/24 07:00 74 18 127/81 09/29/24 06:29 71 09/29/24 06:00 72 11 L 144/83 H 09/29/24 05:24 67 14 120/72 09/29/24 05:21 67 16 120/72 09/29/24 03:31 66 25 H 173/86 H 09/29/24 03:30 72 24 173/86 H 09/29/24 02:43 69 15 135/64 09/29/24 02:42 71 09/29/24 02:33 36.8 C 73 20 135/64 Pulse Ox O2 Del Method 09/29/24 07:55 98 Room Air 09/29/24 07:00 99 Room Air 09/29/24 06:29 09/29/24 06:00 98 Room Air 09/29/24 05:24 94 Room Air 09/29/24 05:21 96 Room Air 09/29/24 03:31 99 Room Air 09/29/24 03:30 96 Room Air 09/29/24 02:43 09/29/24 02:42 09/29/24 02:33 95 Room Air PG Care Time/CCT Total # of Minutes Spent Total Time Spent with Patient: Total time spent is greater than 50% in coordination of care (as documented) at patient's floor/unit and/or counseling patient: Coding Level of Care Code 84406 IN/OBS CONSULT LVL 4,60M Diagnoses Acute pancreatitis K85.80 Acute pancreatitis complication: no infection or necrosis Pancreatitis type: other Common bile duct dilation K83.8 (1) Acute pancreatitis Acute pancreatitis complication: no infection or necrosis Pancreatitis type: other Qualified Code(s): K85.80 - Other acute pancreatitis without necrosis or infection
[2024-09-29] MEDS: KETOROLAC TROMETHAMINE 15 MG/ML VIAL IV PRN (14:31)
[2024-09-29 15:49] VITALS: TEMP 98.1
--- NOTE | 2024-09-29 17:08 | Magnetic Resonance Report ---
EXAM: MR MRCP CLINICAL HISTORY: Pancreatitis? stone TECHNIQUE: Multiplanar multisequence magnetic resonance imaging of the MRCP without intravenous contrast. COMPARISON: CT 09/29/2024 FINDINGS: Liver: Normal size and morphology. Homogeneous signal intensity on T2-weighted images. No focal hepatic lesions. Gallbladder: Distended gall bladder with thick edematous wall and pericholecystic fluid. No stones or sludge. Bile Ducts: Intrahepatic and extrahepatic bile ducts are normal in caliber. Common bile duct is normal in caliber with no evidence of strictures or filling defects. No evidence of choledocholithiasis. Pancreas: Bulky edematous appearance of the pancreas with mild heterogeneous signal with mild amount of related cortney-pancreatic fluid. Also, mild amount of fluid seen in the anterior para-nephric space. The adjacent duodenum showed reactive edematous changes. No necrosis or cystic changes. Normal pancreatic duct. No masses or cystic lesions. Pancreatic Duct: Pancreatic duct is normal in caliber. No evidence of ductal dilatation or filling defects. Spleen: Normal size and appearance. Homogeneous signal intensity. Kidneys: Normal size, shape, and position of both kidneys. left kidney show tiny stone and lower pole small cyst with calcification in its wall ( Bosniak type II) Homogeneous signal intensity on T2-weighted images. No renal stones, masses, or hydronephrosis. Adrenal Glands: Normal size and morphology bilaterally. No adrenal masses. Surrounding Structures: No evidence of free fluid or abnormal fluid collections in the abdomen. Normal appearance of the visualized bowel loops. IMPRESSION: 1. Findings are in keeping with acute pancreatitis. No localized pancreatic collection, necrosis or cystic changes. No dilated duct. 2. Gallbladder showed non-calcular cholecystitis. 3. No dilated bile ducts. Electronically signed by Harpreet Carvalho 09-29-2024 5:08 PM
[2024-09-29 19:26] VITALS: O2SAT 98
--- NOTE | 2024-09-30 07:29 | Discharge Summary ---
Date of Service September 30, 2024 Admission HPI Per Admitting Provider 54-year-old female PMHx incomplete bladder emptying, stress urinary incontinence, and rosacea presenting for N/V/D x 1 week with sudden onset of new, severe abdominal pain starting day of arrival. States that approximately 5 days ago after she was eating she felt sick approximate 2 hours following this. Did take Imodium in order to feel better because she was having loose stool, this resolved the symptoms. Similar episodes occurred on August 09, 2024, Imodium resolving the symptoms again. Today she had sudden onset of severe epigastric abdominal pain, no radiation. Exacerbated by leaning forward causing her to feel nauseous. Patient denies alcohol use. Denying chest pain, shortness of breath, palpitations, numbness/tingling, LUTS,/chills, or URI symptoms. ED evaluation reveals no leukocytosis, potassium 3, AST 41, lipase 4548. TG pending, alcohol level pending. CTAP dilated CBD minimal intrahepatic biliary ductal station, likely secondary to obstructive distal CBD calculus, suggest MRCP, simple L renal cortical cyst. Provided with 2L NSS, Zofran 4 mg, Dilaudid 1.5 mg total in ED. Please see Dr. Boucher's attestation for adjustments/additions to treatment plan. Admission Exam Per Admitting Provider General: No acute distress Skin: Warm and dry, without rashes or lesions Head: Normocephalic, atraumatic Eyes: PERRL, conjunctivae clear, sclera non-icteric ENT: External ear and ear canal without swelling; nose atraumatic; good dentition, tongue normal appearance, pharynx normal Neck: Supple, no LAD; no JVD Cardio: RRR, no M/G/R, S1 and S2 normal Resp: No respiratory distress, Lungs CTA in all lobes bilaterally, no wheezes, rales, or rhonchi Abdomen: Soft, symmetric, nontender; No visible lesions or scars; no distention; No masses or hepatosplenomegaly; Bowel sounds normoactive; no ecchymosis to flank/umbilicus MSK: No deformities; pulses palpable and equal; no edema. Neuro: Awake, alert; CN grossly intact Psych: Appropriate mood and affect; good judgement and insight. Principal Diagnosis acute pancreatitis Discharge Exam General: A&Ox3, appearing in mild distress Head: NC/AT Eyes: EOM intact, PERRL b/l, anicteric sclerae CV: RRR, +s1/s2, no m/r/g Resp: No respiratory distress, clear to auscultation b/l; no wheezes, rales, or rhonchi GI/Abdomen: +BS, abdomen soft, mild tenderness of epigastric region to palpation; No masses or hepatosplenomegaly MSK: No deformities, 5/5 strength in all extremities, no edema Skin: Warm and dry, without rashes or lesions Neuro: no facial droop, speech intact, sensation grossly intact Psych: Appropriate mood and affect Discharge Data Allergies Allergy/AdvReac Type Severity Reaction Status Date / Time aluminum Allergy Mild Rash Verified 09/12/24 09:59 Consultations 09/29/24 05:32 ED Decision to Admit Stat 09/29/24 07:58 Consult Gastroenterology Routine Ordered Studies 09/29/24 02:47 CT Abd and Pelvis [CT abd pelvis IV con only] Stat 09/29/24 06:10 MRI MRCP [MR MRCP] Routine Hospital Course (1) Acute pancreatitis: (2) Hypokalemia: Plan #Pancreatitis, acute Symptoms of severe abdominal pain started 09/28/24; with associated N/V/D for the past week, possible viral prodrome. No prior history of pancreatitis. Only 1 drink of alcohol (hard cider) 09/24/24 evening. - MRCP 09/29/24 showing no acute obstruction, abdominal pain essentially resolved and tolerating food - Lipase resolving, CBC without leukocytosis - Triglycerides and cholesterol within normal limits - gallbladder inflammation -> follow up with general surgery outpatient to discuss removal of gallbladder in order to prevent recurrence of obstructing stones #Common Bile Duct dilation as observed on CT abd/pelvis 09/28/24, likely obstructing gallstone but as lipase and LFTs downtrending may have passed - MRCP result as above, gen surg followup as above #Hypokalemia - resolved #Urinary retention w/ stress incontinence - chronic, no major concerns at this time, has tried pelvic floor exercises with some efficacy - established with urology, will follow up as needed #Hot flashes- Paroxetine Total Time Total Time Spent Total Time Spent (In Minutes): <30 Discharge Plan Discharge Items Patient Disposition: Home - Self-Care Reason For Visit: PANCREATITIS Discharge Diagnosis: acute pancreatitis Activity: Per Instructions section Non-emergency contact: Primary Care Provider Call non-emergency contact if: your symptoms worsen and your pain is not controlled Follow-up/Referrals: Solomon Villalta MD [Primary Care Provider] - 10/07/24 1:00 pm Diet: Low Fat Addtl Attending Provider Instructions: You were evaluated and treated for acute pancreatitis at [facility] when you came in on Monday09/27/24 for severe abdominal pain after 3 days of nausea, vomiting, and some diarrhea. Your lipase was in the 4000s thus admitted for acute pancreatitis and started on IV fluids with NPO order. The next day your lipase had decrease into the 1000s, and your MRCP (MRI of abdomen with focus on biliary tree) showed no obstructing gallstone. You were given your first meal after being NPO evening of 09/29/24 which you tolerated well. Please follow up with your PCP as well as general surgery outpatient to discuss cholecystectomy - gallbladder removal. This may be necessary in preventing future bouts of obstructing gallstones, so please discuss the risks and benefits of this procedure with your general surgeon. Pending Studies at Discharge: No Stand-Alone Forms: My [facility] [employer], Smoking Cessation Medications and DC Order Prescriptions: Continued ibuprofen 600 mg tablet 600 mg PO Q8H PRN (Reason: pain) Qty: 90 0RF paroxetine HCl 30 mg tablet 30 mg PO DAILY Qty: 30 2RF Hair,Skin and Nails Tablet 1 tab PO DAILY Discharge Orders: Discharge Order (Routine); Ordered 09/30/24 Ordered By: Tomasz Marie/Other Patient Handouts: MR Cholangiopancreatography, Treating Gallstones, Understanding Pancreatitis, ED Pancreatitis Admission Data Admit Date/Time: 09/29/24 06:14 Attending Provider: Immanuel Michele Admit Provider: Ralph Boucher Primary Care Provider: Solomon Villalta Other Providers: Ralph Boucher; Allyson Gomez; Wilfredo Guerra; Mary Pina; Nikky Self; Mei Gonzales; Jayde Vallejo; Kristian Moffett; Rajiv Guevara; Natividad Alegre; Mandy Robertsonelli,Tami; Mirta Severino; Kellie Mendenhall; Swetha Vance; Nigel Camacho; Chuck Hair; Yesenia Loera; Sommer Morales Jr; Max Luke.; Jose M Vigil; Alexis Omalley; Gerardo Amador; Deandra Marie; Delbert Lopez I; Aylin Roth; Dusty Cesar Other Interventions: Discharge Summary Assessment (RN) Last Done: 09/30/24 12:32 Supervising Physician Co-Signing Physician Notes I personally examined the patient and verified all rock points of history and exam, discussed case, and agree with decision making with Dr Elkins Feeling better. Abdominal pain better. Ate a full breakfast without significant pain or nausea. Vitals noted, in general she is awake and alert pleasant no distress. HEENT normocephalic atraumatic mucous membranes moist. Breathing unlabored no accessory muscle use good effort. Skin without rashes pallor or icterus. Abdomen soft nondistended nontender no right upper quadrant tenderness to deep palpation. No guarding rebound or rigidity. Acute pancreatitisappears to open gallstone pancreatitisimproving. Safe/stable for home. Clinical picture, exam, and labs not consistent with MRCP finding suggesting cholecystitisdiscussed this with patient. Discussed that she is doing well so to safe to get her home, but would recommend pursuing outpatient cholecystectomy in the near future. She agrees to follow through with this approach. Appreciate GI assistance in facilitating surgical eval. Low-fat diet. Otherwise as above. Resident Activity Tracking Resident Involvement: Resident Care Provided Care Provided: Adult Hospital Medicine
[2024-09-30 08:03] LABS: Hematocrit (blood only) 36.4 % (37.0-47.0); Hemoglobin 12.1 g/dl (12.0-16.0); Mean Corpuscular Hemoglobin 30.7 pg (25.0-34.0); Mean Corpuscular Hgb Conc 33.2 g/dL (32.0-36.0); Mean Corpuscular Volume 92.4 fL (80.0-100.0); Mean Platelet Volume 10.7 fL (9.4-12.4); Platelet Count 204 K/uL (130-400); RDW Coefficient of Variation 11.9 % (11.5-14.5); RDW Standard Deviation 40.7 fL (36.4-46.3); Red Blood Count 3.94 M/uL (4.20-5.40); White Blood Count 5.16 K/ul (4.8-10.8)
[2024-09-30 08:06] VITALS: RESP 18
[2024-09-30 08:23] LABS: Albumin Level 3.5 gm/dl (3.4-5.0); BUN Creatinine Ratio 13.7 (10-20); Bilirubin Direct 0.1 mg/dl (0-0.2); Bilirubin,Total 0.6 mg/dl (0.2-1.0); Calcium 9.1 mg/dl (8.6-10.3); Creatinine Clr Calc Pharmacy 85.7 ml/min; Magnesium 1.9 mg/dl (1.7-2.4); Potassium 3.9 mmol/L (3.5-5.1); Total Protein 5.8 gm/dl (6.0-8.3)
[2024-09-30] MEDS: PANTOprazole 40 MG TAB PO SCH (09:37)
[2024-09-30 12:09] VITALS: BP 122/92; PULSE 76
--- NOTE | 2024-09-30 14:48 | Gastroenterology Progress Note ---
Date of Service September 30, 2024 Assessment & Plan (1) Common bile duct dilation: (2) Acute pancreatitis: Plan MRCP negative. No leukocytosis. Bili, AST, ALT within good range. No further abdominal pain. Patient was being charged by the hospitalist service at the time of my visit. I have encouraged her to follow a low fat diet and follow-up with general surgery as an outpatient to discuss cholecystectomy. I did place an outpatient referral and my office will help facilitate this. Admission and Anticipated Discharge Date Admission Date: September 29, 2024 Subjective Patient is a 54 yo female with acute pancreatitis and CBD dilatation seen by Dr. Guerra on 09/29/24. MRCP was negative. LFTs improved. Patient was being discharged prior to my arrival. She notes resolution of her pain. Review of Systems Gastrointestinal: no abdominal pain Physical Exam Gastrointestinal (Abdomen): normal bowel sounds, soft, nontender, no hepatosplenomegaly Results & Data Results & Data Vital Signs (Past 12 Hours) Vital Signs Temp Pulse Resp BP BP Pulse Ox O2 Del Method 09/30/24 12:07 76 18 122/92 98 Room Air 09/30/24 08:03 36.7 C 74 18 144/76 H 98 Room Air PG Care Time/CCT Total # of Minutes Spent Total Time Spent with Patient: Total time spent is greater than 50% in coordination of care (as documented) at patient's floor/unit and/or counseling patient: Coding Level of Care Code 87786 SUB INP/OBS CARE 2/35MIN Diagnoses Common bile duct dilation K83.8 Acute pancreatitis K85.80 Acute pancreatitis complication: no infection or necrosis Pancreatitis type: other (2) Acute pancreatitis Acute pancreatitis complication: no infection or necrosis Pancreatitis type: other Qualified Code(s): K85.80 - Other acute pancreatitis without necrosis or infection
--- NOTE | 2024-09-30 17:20 | Billing Data ---
Date of Service September 30, 2024 Coding Level of Care Code 33950 IN/OBS DISCH 30 MIN/LESS
== END 2024-09-30 13:17 | disposition home or self-care (01) | DRG 440 ==
LOC: SUATTDRO → ED 02:28 → SUATTDRO 06:14 → 3N 06:14